=== PATIENT | female | born 1960 | race Caucasian/White ===

== ENCOUNTER 2016-02-17 13:33 | Observation (INO) | payer OTHER ==
[2016-02-17] MEDS ORDERED: BUPIVACAINE/EPI 0.5% 30 ML SDV ONE (14:21)
[2016-02-17] MEDS ORDERED: LR 1,000 ML IV ONE (14:35)
[2016-02-17] MEDS ORDERED: LIDOCAINE 1% 5 ML SDV ID PRN (14:35)
[2016-02-17] MEDS ORDERED: VANCOMYCIN 1 GM/NS 250 ML BAG IV ONE (14:55)
[2016-02-17] MEDS ORDERED: VANCOMYCIN HCL/NORMAL SALINE 250 ML IV ONE (15:30)
[2016-02-17] MEDS ORDERED: ACETAMINOPHEN 500 MG TAB PO ONE (15:30)
[2016-02-17] MEDS ORDERED: MIDAZOLAM 2 MG/2 ML VIAL ONE (17:09)
[2016-02-17] MEDS ORDERED: LIDOCAINE 2% 5 ML SDV ONE (17:15)
[2016-02-17] MEDS ORDERED: fentaNYL 100 MCG/2 ML INJ ONE ×5 (17:15→18:51)
[2016-02-17] MEDS ORDERED: PROPOFOL 200 MG/20 ML VIAL ONE (17:16)
[2016-02-17] MEDS ORDERED: PROPOFOL/EMULSION 500 MG/50 ML BOTTLE IV ONE (17:16)
[2016-02-17] MEDS ORDERED: DEXAMETHASONE 4 MG/ML VIAL ONE ×2 (17:35)
[2016-02-17] MEDS ORDERED: ONDANSETRON 4 MG/2 ML VIAL ONE (18:04)
[2016-02-17] MEDS ORDERED: KETOROLAC 30 MG/1 ML SDV ONE (18:05)
[2016-02-17] MEDS ORDERED: HYDROmorphONE/DILAUDID 1 MG/ML SYR ONE ×2 (18:37→18:51)
[2016-02-17] MEDS ORDERED: OXYCODONE/APAP 5/325 TAB ONE (18:57)
[2016-02-17] MEDS ORDERED: OXYCODONE/APAP 5/325 TAB PO PRN (19:52)
[2016-02-17] MEDS ORDERED: NALOXONE HCL 0.4 MG/ML INJ IVP PRN (19:54)
[2016-02-17] MEDS ORDERED: HYDROmorphONE/DILAUDID 6 MG/30 ML PCA IV PRN (19:54)
[2016-02-17] MEDS ORDERED: D5W 1/2 NS W/ 20 KCl/L 1,000 ML IV SCH (20:00)
[2016-02-17] MEDS ORDERED: BUPIVACAINE 0.5% 30 ML SDV ONE (20:05)
--- NOTE | 2016-02-17 20:15 | DX ---
Left Shoulder, AP view History: Postoperative pain Comparison: May 18, 2015 Findings: No fracture or malalignment is identified. The AC joint looks normally aligned. The appeara nce is similar to 10 months ago. No left rib abnormality is identified. Impression: No source for left shoulder pain identified.
[2016-02-17] MEDS ORDERED: ONDANSETRON 4 MG/2 ML VIAL IVP PRN (22:00)
[2016-02-17] MEDS: ONDANSETRON DISINTEGRATING 4 MG TAB PO PRN (22:19)
[2016-02-17] MEDS: KETOROLAC 15 MG/1 ML SDV IVP SCH (23:54)
[2016-02-18] MEDS: ONDANSETRON DISINTEGRATING 4 MG TAB PO PRN ×3 (04:30→13:14)
[2016-02-18] MEDS: KETOROLAC 15 MG/1 ML SDV IVP SCH ×2 (04:37→13:10)
[2016-02-18] MEDS ORDERED: oxyCODONE IR 5 MG TAB PO PRN (07:24)
--- NOTE | 2016-02-18 07:29 | SOAPPROG ---
SOAP Progress Note Assessment/Plan: Assessment: s/p manipulation of left shoulder admitted secondary to pain control issues Plan: d/;c home advance rom as amy f/u at two weeks dvt precautions reviewed 02/18/16 07:27 Subjective: no pain currently no cp or sob Objective: Vital Signs Temp Pulse Resp BP Pulse Ox 36.5 C 57 L 18 95/64 L 99 02/18/16 04:16 02/18/16 04:16 02/18/16 04:16 02/18/16 04:16 02/18/16 04:16 02/17/16 02/18/16 02/19/16 05:59 05:59 05:59 Intake Total 2000 Output Total 300 Balance 1700 intact axillary , r,u,m intact digital flexion and ext fingers warm and pink no calf swelling or ttp ICD10 Worksheet Patient Problems: Problems Problem Status Diagnosed Adhesive capsulitis of left shoulder Acute - ICD10 Problem Qualifiers (1) Adhesive capsulitis of left shoulder
[2016-02-18 08:13] VITALS: BP 92/55; PULSE 61; RESP 16; TEMP 97.8; O2SAT 100
[2016-02-18] MEDS ORDERED: CETIRIZINE 10 MG TAB PO SCH (09:00)
[2016-02-18] MEDS ORDERED: NON-FORMULARY NEW DRUG (Loratadine [Loratadine] 10 MG) PO SCH (09:00)
--- NOTE | 2016-02-18 10:01 | GDS ---
[f rep st] DISCHARGE SUMMARY ADMISSION DIAGNOSIS: Left shoulder adhesive capsulitis. DISCHARGE DIAGNOSIS: Left shoulder adhesive capsulitis. PROCEDURE: Left shoulder lysis of adhesions and manipulation. HISTORY OF PRESENT ILLNESS: The patient is a 55-year-old woman who has adhesive capsulitis to her le ft shoulder. She had similar problems to her right shoulder. She presented for elective arthroscopi c lysis of adhesions, manipulation under anesthesia and subacromial decompression. HOSPITAL COURSE: She was admitted secondary to issues of pain control. She required placement of an interscalene block by anesthesia in the PACU. Given her low saturations and exaggerated pain, she w as set up for operative admission and observation overnight. She had no subsequent complications. A t the time of discharge, she is tolerating an oral diet. Her pain is well controlled on oral medicin es. She is voiding without difficulty. The dressing is clean, dry, and intact. She has intact axil yaima, radial, ulnar, median nerve motor and sensory function. DISCHARGE ACTIVITY: Pendulum range of motion, progressing to passive, then active range of motion as tolerated. Daily dressing changes. No soaking and/or immersion. May shower without the bandage an d/or dressing. Follow up in 2 weeks. /[id number]/MODL
--- NOTE | 2016-02-18 11:52 | GOP ---
[f rep st] OPERATIVE REPORT DATE OF OPERATION: 02/17/2016 SURGEON: Momo Woodall MD BACK TENDER PAPER MACHINE: Rich West, RETORT FIRER, [facility] Mr. West was a medical necessity for the entirety of the case. PREOPERATIVE DIAGNOSIS: Left shoulder adhesive capsulitis and impingement. POSTOPERATIVE DIAGNOSIS: Left shoulder adhesive capsulitis and impingement. PROCEDURE PERFORMED: 1. Left shoulder arthroscopy with limited labral debridement. 2. Lysis of adhesions. 3. Manipulation under anesthesia. 4. Arthroscopic subacromial decompression. FINDINGS: DESCRIPTION OF PROCEDURE: The patient was identified in the preanesthesia area. The right shoulder was clearly demarcated as the operative site with a double marker. She was given 2 g of Ancef intrav enously en route to the operative suite. In the OR, general endotracheal anesthesia was administered . She was positioned in the beach chair position. All bony prominences were well padded, including the use of a neurological hogshead mat assembler. Appropriate time-out procedure was carried out. The shoulder was sterilely prepped and draped in the usual fashion. Standard anterior and posterior incisions we re made and diagnostic arthroscopy ensued. The articular surface of the glenoid was intact, the fatemeh ral head was intact, the synovium was markedly inflamed throughout the entire shoulder joint. The bi ceps was stable intact to gentle probing with synovial proliferation and adhesions surrounding the bi ceps and anteriorly over the subscapularis and capsule. The inferior axillary recess demonstrated mo derately inflamed synovium, but no loose or foreign debris. The rotator cuff demonstrated mild frayi ng on the undersurface and no debridement was necessary. Using the ArthroCare wand, a limited labral debridement was performed to a clean and stable edge. The soft tissue was then gently freed and the scar tissue removed in between the capsule and the biceps and the capsule and the subscapularis tend on. Under direct visualization and manipulation, the soft tissue restraints were released progressiv enedina. The shoulder was then manipulated with the elbow at 90 degrees at side to 90 degrees external r otation, 90 degrees of abduction, 90 degrees of internal and external rotation at this position in f ull overhead elevation. The arthroscopic equipment was withdrawn. An additional port created for daniels bacromial decompression. The arthroscope was introduced into the subacromial position. A complete b ursectomy was performed, followed by subacromial decompression with coplaning of the distal clavicle in standard fashion. All loose particulate debris was withdrawn. Portal sites were withdrawn. The portals were closed using 4-0 nylon suture. The shoulder instilled with 20 cc 0.5% Marcaine with epi nephrine. A sterile compressive dressing was applied with shoulder pad. The patient was awakened, e xtubated, taken to the recovery room in good, stable condition. OPERATIVE INDICATIONS: The patient is a 55-year-old woman who is known to me for a previous release of a right shoulder adhesive capsulitis. She has worked with physical therapy for improvement of her range of motion to her left shoulder. This has been unsuccessful. She desires operative interventi on similar to her right shoulder surgery performed previously. She understood the risks, benefits, a lternatives, and wished to proceed. Written consent was signed and placed in the patient's chart. /[id number]/MODL
[2016-02-18] MEDS ORDERED: DIAZEPAM 10 MG TAB PO SCH (21:00)
== END 2016-02-18 14:41 | disposition home or self-care (01) ==
LOC: FSGY 13:33 → F3N 19:58
PROVIDERS: ADMIT Orthopaedic Surgery; ATTEND Orthopaedic Surgery
PROC: 0RBK4ZZ Excision of Left Shoulder Joint, Percutaneous Endoscopic Approach (ICD-10-PCS; principal; 2016-02-17 16:30)
PROC: 0PBB4ZZ Excision of Left Clavicle, Percutaneous Endoscopic Approach (ICD-10-PCS; principal; 2016-02-17 16:30)
PROC: 0RNH4ZZ Release Left Acromioclavicular Joint, Percutaneous Endoscopic Approach (ICD-10-PCS; principal; 2016-02-17 16:30)
DX: M75.02 Adhesive capsulitis of left shoulder (principal); K21.9 Gastro-esophageal reflux disease without esophagitis
CPT/HCPCS: 29825; 29826; 73020; G0378; J1100; J1170; J1885; J2250; J2405; J2704; J3010; J3370

== ENCOUNTER → 2016-09-11 | Outpatient (CLI) | payer OTHER | LOC: FIMAGING 15:34 | PROVIDERS: ATTEND Internal Medicine | DX: Z12.31 Encounter for screening mammogram for malignant neoplasm of breast (principal) | CPT/HCPCS: G0202 ==

== ENCOUNTER → 2016-12-08 | Outpatient (CLI) | payer OTHER ==
[~2016-12-08] MED LIST: IOPAMIDOL (ISOVUE-300) 100 ML BTL ONE
== END ==
LOC: CIMAGING 08:23
PROVIDERS: ATTEND Physician Assistant Medical
DX: N30.00 Acute cystitis without hematuria (principal); R39.15 Urgency of urination; Q62.5 Duplication of ureter
CPT/HCPCS: 74178-PO; Q9967

== ENCOUNTER 2018-03-31 10:11 | Emergency (ER) | payer OTHER ==
[2018-03-31] MEDS ORDERED: NS 1,000 ML IV ONE (10:37)
--- NOTE | 2018-03-31 10:40 | EDPHY ---
H & P Stated Complaint: c/o RUQ pain starting last am, no other sx Time Seen by Provider: 03/31/18 10:26 HPI/ROS: CHIEF COMPLAINT: Right upper quadrant abdominal pain HISTORY OF PRESENT ILLNESS: 57-year-old female complaining of right upper quadrant abdominal pain since yesterday morning. Pain reproducible with palpation, inspiration. Denies trauma or fall. Denies recent illness. Denies cough. Denies dyspnea. Denies chest pain. Last oral intake at 8:00 a.m. Today consisting of yogurt PRIMARY CARE PROVIDER: REVIEW OF SYSTEMS: 10 systems reviewed and negative with the exception of the elements mentioned in the history of present illness PAST MEDICAL & SURGICAL HISTORY: No pertinent medical or surgical history SOCIAL HISTORY: Nonsmoker. No drug use. Works as a nurse. PHYSICAL EXAM (Prior to examination, patient consented to physical exam, hands were washed and my usual and customary physical exam procedures followed) 1) GENERAL: Well-developed, well-nourished, alert and oriented. Appears to be in no acute distress until she is asked to move at which point she appears quite uncomfortable. 2) HEAD: Normocephalic, atraumatic 3) HEENT: Pupils equal, round, reactive to light bilaterally. Sclera anicteric. 4) NECK: Full range of motion, no meningeal signs. 5) LUNGS: Clear auscultation bilaterally, no wheezes, no rhonchi, no retractions. 6) HEART: Regular rate and rhythm, no murmur, no heave, no gallop. 7) ABDOMEN: No guarding, no rebound, positive Cheema's negative Rovsing's, negative peritoneal sign, 8) MUSCULOSKELETAL: Moving all extremities, no focal areas of tenderness, no obvious trauma. No peripheral edema or discoloration. No lesions no vesicles. 9) BACK: No CVA tenderness, no midline vertebral tenderness, no fluctuance, no step-off, no obvious trauma, no visual or palpable abnormality. 10) SKIN: No rash, no petechiae. 11) Psychiatric: Patient is oriented X 3, there is no agitation. DIFFERENTIAL DIAGNOSIS: In no particular order, including but not limited to biliary colic, cholecystitis, peptic ulcer disease, pancreatitis, and gastroenteritis. This is a partial list of diagnoses considered. These considerations are based on history, physical exam, past history and reassessment. - Personal History Tetanus Vaccine Date: UNKNOWN - Medical/Surgical History Hx Asthma: No Hx Chronic Respiratory Disease: No Hx Diabetes: No Hx Cardiac Disease: No Hx Renal Disease: No Hx Cirrhosis: No Hx Alcoholism: No Hx HIV/AIDS: No Hx Splenectomy or Spleen Trauma: No Other PMH: uti's, arthroscopic shoulder surg bilat, uterine ablation, tubal ligation - Social History Smoking Status: Never smoked Constitutional: Initial Vital Signs Temperature (C) 36.9 C 03/31/18 10:24 Heart Rate 85 03/31/18 10:24 Respiratory Rate 18 03/31/18 10:24 Blood Pressure 114/75 03/31/18 10:24 O2 Sat (%) 99 03/31/18 10:24 O2 Delivery Mode Room Air Allergies/Adverse Reactions: ofloxacin [From Floxin] Allergy (Intermediate, Verified 03/31/18 10:28) Other-Enter Comments Sulfa (Sulfonamide Antibiotics) Allergy (Intermediate, Verified 03/31/18 10:28) Rash cephalexin monohydrate [From Keflex] Allergy (Verified 03/31/18 10:28) Home Medications: Medication Instructions Recorded Herbals/Supplements -Info Only 1 ea PO DAILY 02/16/16 Hydrocodone/APAP 5/325 [Tionesta 1 tab PO Q6 PRN #10 tab 03/31/18 5/325 (RX)] Methenamine Bijan 03/31/18 Unk Gerd Med 03/31/18 Medical Decision Making - Diagnostics Imaging Results: Imaging Impressions Abdomen Ultrasound 03/31/18 10:35 Impression: 1. Diffuse fatty infiltration of the liver. Normal gallbladder without evidence of biliary ductal dilatation despite positive sonographic Cheema sign.. 2. Upper limits of normal size of visualized pancreatic duct in the pancreatic body. The head and tail of the pancreas is not visualized given overlying bowel gas. With clinical concern, further evaluation with MRCP is recommended. Anna Littlejohn was notified of these findings at 11:21 AM on 03/31/[address] 03/31/18 12:02 Impression: 1. Normal CT appearance of the gallbladder, liver, pancreas, and biliary tree. 2. Query mild gastric wall thickening versus incomplete distention, and questionable mild thickening of the valvulae conniventes in the duodenum. If there is further clinical concern regarding the possibility of a mild gastroduodenitis, endoscopy may be considered in this patient with epigastric discomfort. Images reviewed myself ED Course/Re-evaluation: 1:50 p.m.: Re-evaluation. Discussed her CT imaging which shows no definitive etiology for symptoms. I re-evaluated the patient she remains exquisitely tender to palpation in the right upper quadrant. The specific etiology of her symptoms is incompletely clear. Doubt pulmonary pathology such as lower lobe pneumonia or peripheral pulmonary embolus. She is noted to have bacteriuria and pyuria with no CVA tenderness no radiographic evidence of pyelonephritis. Think that pyelonephritis less than likely the etiology for symptoms. Care of patient under supervision of secondary supervising physician Dr Caceres with whom I discussed case. Will plan on consultation with General surgery. 2:02 p.m.: Consultation with Dr. Rich Shirley who will come to the ER to evaluate patient 3:24 p.m.: Patient has been seen evaluated by Dr. Rich Shirley. Please see his consultation of further information who feels that the patient's pain is likely secondary to acute right 11th rib trauma and etiology. Plan will be discharge home with analgesia, incentive spirometer. - Data Points Laboratory Results: Laboratory Results 03/31/18 10:40 03/31/18 10:40 03/31/18 03/31/18 03/31/18 10:40 10:40 10:40 WBC 6.60 10^3/uL 10^3/uL (3.80-9.50) RBC 4.82 10^6/uL 10^6/uL (4.18-5.33) Hgb 14.9 g/dL g/dL (12.6-16.3) Hct 44.4 % % (38.0-47.0) MCV 92.1 fL fL (81.5-99.8) MCH 30.9 pg pg (27.9-34.1) MCHC 33.6 g/dL g/dL (32.4-36.7) RDW 13.2 % % (11.5-15.2) Plt Count 329 10^3/uL 10^3/uL (150-400) MPV 8.8 fL fL (8.7-11.7) Neut % (Auto) 67.8 % % (39.3-74.2) Lymph % (Auto) 23.3 % % (15.0-45.0) [place] % (Auto) 7.3 % % (4.5-13.0) Eos % (Auto) 0.8 % % (0.6-7.6) Baso % (Auto) 0.5 % % (0.3-1.7) Nucleat RBC Rel Count 0.0 % % (0.0-0.2) Absolute Neuts (auto) 4.48 10^3/uL 10^3/uL (1.70-6.50) Absolute Lymphs (auto) 1.54 10^3/uL 10^3/uL (1.00-3.00) Absolute Monos (auto) 0.48 10^3/uL 10^3/uL (0.30-0.80) Absolute Eos (auto) 0.05 10^3/uL 10^3/uL (0.03-0.40) Absolute Basos (auto) 0.03 10^3/uL 10^3/uL (0.02-0.10) Absolute Nucleated RBC 0.00 10^3/uL 10^3/uL (0-0.01) Immature Gran % 0.3 % % (0.0-1.1) Immature Gran # 0.02 10^3/uL 10^3/uL (0.00-0.10) Sodium 140 mEq/L mEq/L (135-145) Potassium 5.5 mEq/L H mEq/L (3.5-5.2) Chloride 108 mEq/L mEq/L (97-110) Carbon Dioxide 24 mEq/l mEq/l (22-31) Anion Gap 8 mEq/L mEq/L (6-14) BUN 17 mg/dL mg/dL (7-23) Creatinine 0.8 mg/dL mg/dL (0.6-1.0) Estimated GFR > 60 Glucose 85 mg/dL mg/dL (70-100) Calcium 9.7 mg/dL mg/dL (8.5-10.4) Total Bilirubin 0.9 mg/dL mg/dL (0.1-1.4) Conjugated Bilirubin 0.5 mg/dL mg/dL (0.0-0.5) Unconjugated Bilirubin 0.4 mg/dL mg/dL (0.0-1.1) AST 34 IU/L IU/L (14-46) ALT 12 IU/L IU/L (9-52) Alkaline Phosphatase 74 IU/L IU/L (38-126) Total Protein 8.3 g/dL H g/dL (6.3-8.2) Albumin 4.8 g/dL g/dL (3.5-5.0) Lipase 362 IU/L H IU/L (23-300) Beta HCG, Qual NEGATIVE Specimen Hemolysis 144 Urine Color Urine Appearance Urine pH Ur Specific [place] Urine Protein Urine Ketones Urine Blood Urine Nitrate Urine Bilirubin Urine Urobilinogen Ur Leukocyte Esterase Urine RBC Urine WBC Ur Epithelial Cells Urine Bacteria Urine Glucose 03/31/18 10:22 WBC RBC Hgb Hct MCV MCH MCHC RDW Plt Count MPV Neut % (Auto) Lymph % (Auto) [place] % (Auto) Eos % (Auto) Baso % (Auto) Nucleat RBC Rel Count Absolute Neuts (auto) Absolute Lymphs (auto) Absolute Monos (auto) Absolute Eos (auto) Absolute Basos (auto) Absolute Nucleated RBC Immature Gran % Immature Gran # Sodium Potassium Chloride Carbon Dioxide Anion Gap BUN Creatinine Estimated GFR Glucose Calcium Total Bilirubin Conjugated Bilirubin Unconjugated Bilirubin AST ALT Alkaline Phosphatase Total Protein Albumin Lipase Beta HCG, Qual Specimen Hemolysis Urine Color PALE YELLOW Urine Appearance CLEAR Urine pH 6.0 (5.0-7.5) Ur Specific [place] 1.003 (1.002-1.030) Urine Protein NEGATIVE (NEGATIVE) Urine Ketones NEGATIVE (NEGATIVE) Urine Blood NEGATIVE (NEGATIVE) Urine Nitrate NEGATIVE (NEGATIVE) Urine Bilirubin NEGATIVE (NEGATIVE) Urine Urobilinogen NEGATIVE EU EU (0.2-1.0) Ur Leukocyte Esterase 3+ H (NEGATIVE) Urine RBC 1-3 /hpf /hpf (0-3) Urine WBC 25-50 /hpf H /hpf (0-3) Ur Epithelial Cells TRACE /lpf /lpf (NONE-1+) Urine Bacteria TRACE /hpf H /hpf (NONE SEEN) Urine Glucose NEGATIVE (NEGATIVE) Medications Given: Discontinued Medications Al Hydroxide/Mg Hydroxide (Maalox Susp) 30 ml PO ONCE ONE Stop: 03/31/18 13:47 Last Admin: 03/31/18 14:05 Dose: 30 ml Hyoscyamine Sulfate (Levsin, Hyomax-Sl) 0.25 mg PO ONCE ONE Stop: 03/31/18 13:47 Last Admin: 03/31/18 14:05 Dose: 0.25 mg Sodium Chloride (Ns) 1,000 mls @ 0 mls/hr IV ONCE ONE PRN Reason: Wide Open Stop: 03/31/18 10:38 Last Admin: 03/31/18 10:41 Dose: 1,000 mls Lidocaine (Lidocaine 2% Viscous) 15 ml PO ONCE ONE Stop: 03/31/18 13:47 Last Admin: 03/31/18 14:06 Dose: 15 ml Morphine Sulfate (Morphine) 4 mg IVP EDNOW ONE Stop: 03/31/18 10:39 Last Admin: 03/31/18 10:42 Dose: 4 mg Departure - Departure Disposition: Home, Routine, Self-Care Clinical Impression: Rib pain on right side Condition: Good Instructions: Rib Contusion (ED) Additional Instructions: Seek medical attention if you develop new or worsening chest pain, if you develop new or worsening shortness of breath, or any other symptoms that concern you. Referrals: Sandra Woodruff MD [Primary Care Provider] - As per Instructions Prescriptions: Hydrocodone/APAP 5/325 [Tionesta 5/325 (RX)] 1 tab PO Q6 PRN #10 tab PRN Reason: Pain, Severe
[2018-03-31 10:52] LABS: PLATELET COUNT 329 10^3/uL (150-400)
[2018-03-31] MEDS ORDERED: IOHEXOL 300 mgI/ML (OMNIPAQUE) 150 ML BTL IV ONE ×2 (12:12→12:33)
[2018-03-31] MEDS ORDERED: HYOSCYAMINE SULFATE 0.125 MG TAB PO ONE (13:46)
[2018-03-31] MEDS ORDERED: LIDOCAINE 2% VISCOUS 15 ML UDCUP PO ONE (13:46)
[2018-03-31] MEDS ORDERED: MAG HYDROX/AL HYDROX/SIMETH 30 ML UDCUP PO ONE (13:46)
[2018-03-31 15:55] VITALS: BP 105/62
--- NOTE | 2018-03-31 15:57 | GHP ---
[f rep st] HISTORY AND PHYSICAL DATE OF ADMISSION: 03/31/2018 CONSULTATION REQUESTED BY: Joey Caceres MD and ERIC Owen. REASON FOR CONSULTATION: Right upper quadrant pain. 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 It was worse last evening with movement. She slept poorly. Her pain when she is not moving is not present, when she does move it is a sharp and localized pain. She has no known trauma. There is no effect with eating or moving her bowels. There is no history of recent upper respiratory tract infection or diarrhea. There is no history of recent abdominal surgery. There is no history of travel. She does take an antibiotic for UTI. There is no history of inflammatory bowel disease. Her last colonoscopy was last fall. PAST MEDICAL HISTORY: There is no history of rheumatic fever, tuberculosis, hepatitis, transfusions. SOCIAL HISTORY: She does not smoke. She drinks 1 beer 5 times a week. ALLERGIES: She has a rash with sulfa drugs. She had a rash at the end of a course of Keflex. She does not tolerate tramadol. MEDICATIONS: She takes medication for her bladder. She uses a Valtrex for a vesicular eruption which is apparently not herpes. She takes vitamin D and something for heartburn. PAST SURGICAL HISTORY: She has had bilateral shoulder arthroscopies for frozen shoulders. She has had a uterine ablation. She has had a tubal ligation. REVIEW OF SYSTEMS: She wears lenses for visual correction. She has 1 dental crown. She has reflux approximately once a week if she has not take her medications. She was told her TSH was slightly abnormal and a repeat study is pending. She believes her mother has had Rashaun thyroiditis, but that is unclear. She has seasonal allergies. On an intermittent basis, she has a regularly irregular heartbeat. She does not know what prior EKGs have shown. Last mammogram was normal, but was 1-1/2 years ago. Last Pap smear was 2 years ago. 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 There are no limits on her active activities. No history of steroid use. FAMILY HISTORY: Her mother is 75 years old and does have thyroid issue. Her father is 76 and has a congenital heart condition. The patient is followed in by 3 brothers, 55, 53, and 49, all alive and well. The 53-year-old brother does have GI issues. She has half sister who is 49 years old. No bleeding disorders, clotting disorders, difficulty with anesthesia. PHYSICAL EXAMINATION: GENERAL: She is awake, alert, and in no acute distress. She is very pleasant. NEUROLOGIC: Shows no focal or lateralizing neurologic findings. NECK: There is no enlargement of her thyroid. Carotid bruits not appreciated. LYMPHATIC: There are no cervical, supraclavicular, axillary, or inguinal lymphadenopathy. BACK: Unremarkable. LUNGS: Clear to auscultation. HEART: At my examination, her heart rate is regularly regular. ABDOMEN: She is nontender to palpation in all quadrants of the abdomen. She is not tender with cough in all quadrants of the abdomen. She has a negative Cheema sign. Over the tip of the 11th rib, she is quite tender to palpation. This pain is quite reproducible. DATA: Note is made her lipase is 362. Beta HCG negative. Potassium is 5.5. White count 6.6, hematocrit is 44, platelet count is 329. CT scan does not show any discernible abnormalities. Her ultrasound does not show any biliary involvement. IMPRESSION: I feel this patient most probably has a minimally visualizable fracture of the tip of her right 11th rib. I feel it is reasonable to treat that and to see how she does. /[id number]/MODL MTDD
== END 2018-03-31 15:52 | disposition home or self-care (01) ==
DX: R07.81 Pleurodynia (principal); K76.0 Fatty (change of) liver, not elsewhere classified
CPT/HCPCS: 96374; J2270; Q9967